=== PATIENT | male | born 1955 | race Two or more races ===

== ENCOUNTER 2016-08-11 23:05 | Emergency (ER) | payer OTHER ==
[~2016-08-11] VITALS: Ht 157.5 cm; Wt 110.2 kg
[~2016-08-11 23:05] MED LIST: ASPI-605 PO; Acetaminophen PO; ESOM40CA PO; GABA300C PO; TAMS-3 PO; VALA500T PO
--- NOTE | 2016-08-11 23:23 | NUR ---
Pt c/o extreme 10/10 pain in right elbow, started around 1600 today, denies trauma, distal PMS intact but movement of hand/fingers limited due to pain, cap refill < 2 sec. No other complaints, minor distress noted.
[2016-08-11] MEDS ORDERED: CLINDAMYCIN HCL 150 MG CAPSULE PO ONE (23:45)
[2016-08-11] MEDS ORDERED: HYDROCODONE/APAP 10-325 MG TABLET PO ONE (23:45)
[2016-08-11] MEDS ORDERED: ONDANSETRON ODT 4 MG TAB.RAPDIS SL ONE (23:45)
[2016-08-12] MEDS ORDERED: CLINDAMYCIN HCL 300 MG CAPSULE ONE
[2016-08-12] MEDS ORDERED: HYDROCODONE/APAP 10-325 MG TABLET ONE (00:01)
[2016-08-12] MEDS ORDERED: ONDANSETRON ODT 4 MG TAB.RAPDIS ONE (00:01)
--- NOTE | 2016-08-12 00:29 | NUR ---
Pt states his pain is now just 2-06/11.
--- NOTE | 2016-08-12 00:51 | NUR ---
Gave pt RX and d/c instructions, verbalized understanding. Pt's is driving.
== END 2016-08-12 00:55 | disposition home or self-care (01) ==
LOC: ER 23:05
DX: L03.113 Cellulitis of right upper limb (principal); E11.9 Type 2 diabetes mellitus without complications; Z79.82 Long term (current) use of aspirin
CPT/HCPCS: 73080; A4663; Q0162

== ENCOUNTER 2016-08-17 10:30 | Inpatient (IN) | payer OTHER ==
[~2016-08-17] VITALS: Ht 162.6 cm; Wt 95.3 kg
[2016-08-17] MEDS ORDERED: IV NORMAL SALINE 1000 ML BAG IV ONE (11:15)
[2016-08-17 11:25] LABS: BASOPHILS # (AUTO) 0.1 K/uL (0.0-8.0); EOSINOPHILS # (AUTO) 0.3 K/uL (0.0-0.7); LYMPHOCYTES % (AUTO) 17.7 % (20.5-51.5); RED BLOOD CELL COUNT(AUTO) 5.23 MIL/UL (4.7-6.1)
[2016-08-17 11:28] LABS: BASOPHILS % (AUTO) 0.7 % (0.0-2.0); EOSINOPHILS % (AUTO) 2.9 % (0.0-7.0); HEMATOCRIT 43.9 % (40-50); HEMOGLOBIN 15.6 G/DL (14.0-18.0); MEAN CORPUSCULAR HEMOGLOBIN 29.8 UUG (27.0-31.0); MEAN CORPUSCULAR HGB CONC 36 g/dL (32.0-37.0); MEAN CORPUSCULAR VOLUME 83.9 FL (82.0-92.0); MONOCYTES # (AUTO) 0.9 K/UL (0.1-1.30); MONOCYTES % (AUTO) 8.2 % (0.0-11.0); NEUTROPHILS # (AUTO) 8.1 K/UL (1.8-8.9); NEUTROPHILS % (AUTO) 70.5 % (38.5-71.5); PLATELET COUNT (AUTO) 219 K/UL (150-450); RED CELL DISTRIBUTION WIDTH 13.9 % (11.5-14.5); WHITE BLOOD COUNT (AUTO) 11.4 K/UL (4.0-11.2)
[2016-08-17 11:35] LABS: CALCIUM 9.1 mg/dL (8.5-10.1); CREATININE 0.8 mg/dL (0.6-1.3)
[2016-08-17 11:43] LABS: TROPONIN I < 0.017 ng/mL (0.00-0.056)
[2016-08-17 11:47] LABS: ALBUMIN 3.7 g/dL (3.4-5.0); BILIRUBIN,DIRECT 0.1 mg/dL (0.0-0.2); BILIRUBIN,TOTAL 0.5 mg/dL (0.2-1.0); TOTAL PROTEIN, SERUM 7.4 g/dL (6.4-8.2)
[2016-08-17 11:48] LABS: LACTIC ACID 1.4 mmol/L (0.4-2.0)
[2016-08-17 11:49] LABS: EOSINOPHILS % (MANUAL) 3 % (0-8); LYMPHOCYTES % (MANUAL) 17 % (20-40); MONOCYTES % (MANUAL) 14 % (2-10); NEUTROPHILS % (MANUAL) 66 % (42-75)
[2016-08-17 11:50] LABS: PLATELET ESTIMATE ADEQUATE
[2016-08-17] MEDS ORDERED: inhaler (12:31)
[2016-08-17] MEDS ORDERED: METF-495 PO (12:31)
[2016-08-17] MEDS ORDERED: IV NORMAL SALINE 250 ML IV ONE (12:33)
[2016-08-17] MEDS ORDERED: IOHEXOL 350 100 ML INFUS..BTL ONE (12:33)
[2016-08-17] MEDS ORDERED: TAMS-3 PO (12:36)
[2016-08-17] MEDS ORDERED: METOCLOPRAMIDE HCL 10 MG/2 ML VIAL IV ONE (14:15)
[2016-08-17] MEDS ORDERED: METOCLOPRAMIDE HCL 10 MG/2 ML VIAL ONE (14:26)
[2016-08-17] MEDS ORDERED: ZOLPIDEM 5 MG TABLET PO PRN (16:15)
[2016-08-17] MEDS ORDERED: Z GUARD REMEDY PASTE 57 GM TUBE TOP PRN (16:15)
[2016-08-17] MEDS ORDERED: HYDROCODONE/APAP 5-325MG TABLET PO PRN (16:15)
[2016-08-17] MEDS ORDERED: MAGNESIUM HYDROXIDE 30 ML LIQUID UDC PO PRN (16:15)
[2016-08-17] MEDS ORDERED: ONDANSETRON 4 MG/2 ML VIAL IV PRN (16:15)
[2016-08-17] MEDS ORDERED: ACETAMINOPHEN 325 MG TABLET PO PRN (16:15)
[2016-08-17 16:27] VITALS: BP 121/72
[2016-08-17] MEDS ORDERED: METFORMIN XR 500 MG TAB.SR.24H PO SCH (18:00)
[2016-08-17] MEDS: TAMSULOSIN HCL 0.4 MG CAP.SR.24H PO SCH ×2 (20:03→20:17)
[2016-08-17 20:24] VITALS: BP 127/69
[2016-08-18] VITALS: BP 124/70
[2016-08-18 04:40] VITALS: BP 108/74
[2016-08-18] MEDS: PANTOPRAZOLE SODIUM 40 MG TABLET.DR PO SCH ×2 (06:19→10:14)
[2016-08-18 06:29] LABS: BASOPHILS # (AUTO) 0.1 K/uL (0.0-8.0); BASOPHILS % (AUTO) 0.6 % (0.0-2.0); EOSINOPHILS # (AUTO) 0.4 K/uL (0.0-0.7); EOSINOPHILS % (AUTO) 4.8 % (0.0-7.0); HEMATOCRIT 41.4 % (40-50); HEMOGLOBIN 14.3 G/DL (14.0-18.0); LYMPHOCYTES # (AUTO) 1.8 K/UL (0.8-4.8); LYMPHOCYTES % (AUTO) 21.3 % (20.5-51.5); MEAN CORPUSCULAR HEMOGLOBIN 29.2 UUG (27.0-31.0); MEAN CORPUSCULAR HGB CONC 35 g/dL (32.0-37.0); MEAN CORPUSCULAR VOLUME 84.7 FL (82.0-92.0); MONOCYTES # (AUTO) 0.8 K/UL (0.1-1.30); MONOCYTES % (AUTO) 9.8 % (0.0-11.0); NEUTROPHILS # (AUTO) 5.4 K/UL (1.8-8.9); NEUTROPHILS % (AUTO) 63.5 % (38.5-71.5); PLATELET COUNT (AUTO) 209 K/UL (150-450); RED BLOOD CELL COUNT(AUTO) 4.89 MIL/UL (4.7-6.1); RED CELL DISTRIBUTION WIDTH 13.7 % (11.5-14.5); WHITE BLOOD COUNT (AUTO) 8.5 K/UL (4.0-11.2)
[2016-08-18 06:40] LABS: CALCIUM 8.6 mg/dL (8.5-10.1); CREATININE 0.7 mg/dL (0.6-1.3); MAGNESIUM 1.8 mg/dL (1.8-2.4); PHOSPHOROUS 3.8 mg/dL (2.5-4.9)
[2016-08-18 11:47] VITALS: BP 115/75
[2016-08-19] MEDS ORDERED: METFORMIN XR 500 MG TAB.SR.24H PO SCH (18:00)
== END 2016-08-18 12:40 | disposition home or self-care (01) | DRG 243 ==
LOC: ER 10:30 → TELE 14:50
PROVIDERS: ADMIT Family Medicine; ATTEND Family Medicine
DX: K20.8 Other esophagitis (principal); K76.0 Fatty (change of) liver, not elsewhere classified; E11.9 Type 2 diabetes mellitus without complications; E66.9 Obesity, unspecified; D72.829 Elevated white blood cell count, unspecified; G47.33 Obstructive sleep apnea (adult) (pediatric); K44.9 Diaphragmatic hernia without obstruction or gangrene; J45.909 Unspecified asthma, uncomplicated; N40.0 Benign prostatic hyperplasia without lower urinary tract symptoms; Z87.891 Personal history of nicotine dependence; R79.89 Other specified abnormal findings of blood chemistry; Z68.36 Body mass index [BMI] 36.0-36.9, adult; Z71.3 Dietary counseling and surveillance
CPT/HCPCS: 36415; 70030-TC; 71010; 71275; 83605; 83735; 84100; 85025; 85730; 87040; 93005; A4663; J2765; J7030; J7050; Q9967

== ENCOUNTER 2017-03-09 11:24 | Emergency (ER) | payer OTHER ==
[~2017-03-09] VITALS: Ht 167.6 cm; Wt 103.4 kg
[~2017-03-09 11:24] MED LIST changes: -ASPI-605 PO; -Acetaminophen PO; -GABA300C PO; +METF-495 PO; -VALA500T PO; +inhaler
[2017-03-09] MEDS ORDERED: ONDANSETRON ODT 4 MG TAB.RAPDIS SL ONE (12:00)
[2017-03-09] MEDS ORDERED: HYDROCODONE/APAP 7.5-325MG TABLET PO PRN (12:00)
[2017-03-09 12:30] LABS: *BILIRUBIN,URIN NEGATIVE (NEGATIVE); *BLOOD, URINE 3+ (NEGATIVE); *CLARITY,URINE CLOUDY (CLEAR); *COLOR,URINE RED (YELLOW); *KETONES,URINE NEGATIVE (NEGATIVE); *PROTEIN,URINE 1+ (NEGATIVE); LEUKOCYTE ESTERASE ,URINE NEGATIVE (NEGATIVE); NITRITE, URINE NEGATIVE (NEGATIVE)
[2017-03-09 12:50] LABS: UGLUCOSE 2+ (NEGATIVE)
[2017-03-09 12:53] LABS: BACTERIA,URINE NONE SEEN /HPF (NONE SEEN); RBC,URINE TNTC /HPF (0-3); SQUAMOUS EPITHELIAL CELL,UR NONE SEEN /HPF (NONE SEEN); WBC,URINE NONE SEEN /HPF (0-3)
--- NOTE | 2017-03-09 13:14 | NUR ---
Patient was seen by MD. Urine lab results were given to patient and explained to patient by MD. Patient to follow up with urologist. DC and follow up isntructions given and explained to patient who states he understands all instructions.
== END 2017-03-09 13:19 | disposition home or self-care (01) ==
LOC: ER 11:24
DX: R31.9 Hematuria, unspecified (principal); G47.30 Sleep apnea, unspecified; E11.9 Type 2 diabetes mellitus without complications; Z90.49 Acquired absence of other specified parts of digestive tract
CPT/HCPCS: A4663

== ENCOUNTER 2017-12-30 15:32 | Emergency (ER) | payer OTHER ==
[~2017-12-30] VITALS: Ht 167.6 cm; Wt 108.0 kg
[2017-12-30 16:09] LABS: BASOPHILS # (AUTO) 0.1 K/uL (0.0-8.0); BASOPHILS % (AUTO) 0.7 % (0.0-2.0); EOSINOPHILS # (AUTO) 0.2 K/uL (0.0-0.7); EOSINOPHILS % (AUTO) 2.2 % (0.0-7.0); HEMATOCRIT 45.7 % (36.7-47.1); HEMOGLOBIN 15.5 g/dL (12.5-16.3); LYMPHOCYTES # (AUTO) 1.5 K/uL (20.0-40.0); LYMPHOCYTES % (AUTO) 15.6 % (20.5-51.5); MEAN CORPUSCULAR HEMOGLOBIN 30.4 uug (23.8-33.4); MEAN CORPUSCULAR HGB CONC 34 g/dL (32.5-36.3); MEAN CORPUSCULAR VOLUME 89.4 fL (73.0-96.2); MONOCYTES # (AUTO) 0.8 K/uL (2.0-10.0); MONOCYTES % (AUTO) 8.5 % (0.0-11.0); NEUTROPHILS # (AUTO) 6.9 K/uL (1.8-8.9); PLATELET COUNT (AUTO) 215 K/uL (152-348); RED BLOOD CELL COUNT(AUTO) 5.11 MIL/uL (4.06-5.63); WHITE BLOOD COUNT (AUTO) 9.5 K/uL (3.6-10.2)
[2017-12-30 16:11] LABS: ABG BASE EXCESS -2.2 mmol/L; ABG HCO3 21.8 mmol/L; ABG PCO2 35.6 mmHg (35.0-45.0); ABG PH 7.405 (7.350-7.450); ABG PO2 78.5 mmHg (75.0-100.0); ABG SITE LEFT BRACHIAL; ABG TOTAL HEMOGLOBIN 15.3 G/dL (13.5-18.0); COHb 1.6 % (0.5-1.5); MetHb 0.1 % (0.0-1.5); O2Hb 94.1 % (94.0-97.0); VENT MODE ROOM AIR
[2017-12-30 16:14] LABS: CREATININE 0.9 mg/dL (0.6-1.3); POTASSIUM 4.1 mmol/L (3.5-5.1)
[2017-12-30 16:27] LABS: BILIRUBIN,DIRECT 0.1 mg/dL (0.0-0.2); BILIRUBIN,TOTAL 0.5 mg/dL (0.2-1.0); TOTAL PROTEIN, SERUM 7.3 g/dL (6.4-8.2)
[2017-12-30] MEDS ORDERED: IPRATROPIUM BROMIDE 0.5 MG/2.5 ML NEBU NEB ONE (16:30)
[2017-12-30] MEDS ORDERED: ALBUTEROL SULFATE 2.5 MG/3 ML NEBU ONE (16:30)
[2017-12-30] MEDS ORDERED: ALBUTEROL SULFATE 2.5 MG/3 ML NEBU NEB ONE (16:30)
[2017-12-30] MEDS ORDERED: IPRATROPIUM BROMIDE 0.5 MG/2.5 ML NEBU ONE (16:31)
[2017-12-30] MEDS ORDERED: IOHEXOL 350 100 ML INFUS..BTL ONE (17:22)
[2017-12-30] MEDS ORDERED: SWABABLE VALVE TRANSFER SET EA MC ONE (17:22)
[2017-12-30] MEDS ORDERED: IV NORMAL SALINE 250 ML IV ONE (17:22)
[2017-12-30] MEDS ORDERED: NORMAL SALINE FLUSH 10 ML DISP.SYRIN ONE (17:22)
--- NOTE | 2017-12-30 18:32 | NUR ---
Patient discharged to home in stable conditon. Written and verbal after care instructions given. Patient verbalizes understanding of instructions.pt walks in steady gait, breathing better, ra 98%, copies of all the studies provided for pt to follow up with pmd .
[2017-12-30 18:33] VITALS: BP 118/77
== END 2017-12-30 18:35 | disposition home or self-care (01) ==
LOC: ER 15:33
DX: R06.00 Dyspnea, unspecified (principal); R21 Rash and other nonspecific skin eruption; E11.9 Type 2 diabetes mellitus without complications; Z87.891 Personal history of nicotine dependence
CPT/HCPCS: 36415; 36600; 70030-TC; 71045; 71275; 85025; 93005; A4663; J3490; J3590; J7050; Q9967

== ENCOUNTER 2021-03-19 15:28 | Emergency (ER) | payer MEDICARE, OTHER ==
[~2021-03-19] VITALS: Ht 162.6 cm; Wt 104.3 kg
--- NOTE | 2021-03-19 16:10 | NUR ---
DR DRISCOLL AT BEDSIDE FOR MSE.
[2021-03-19 16:53] LABS: HEMATOCRIT 38.6 % (36.7-47.1); MEAN CORPUSCULAR HEMOGLOBIN 26.9 uug (23.8-33.4); PLATELET COUNT (AUTO) 236 K/uL (152-348)
[2021-03-19 17:05] LABS: BILIRUBIN,DIRECT 0.1 mg/dL (0.0-0.2); BILIRUBIN,TOTAL 0.6 mg/dL (0.2-1.0); CREATININE 0.7 mg/dL (0.6-1.3); POTASSIUM 3.6 mmol/L (3.5-5.1)
--- NOTE | 2021-03-19 17:35 | NUR ---
PATIENT HAS BEEN CLEARED FOR D/C. Written and verbal after care instructions given. Patient verbalizes understanding of instructions. Stressed follow up WITH PCP/SURGEON or return to ER for worsening s/s. Patient AMBULATED OUT OF ED to home in stable condition.
[2021-03-19 17:37] VITALS: BP 135/83
== END 2021-03-19 17:50 | disposition home or self-care (01) ==
LOC: ER 15:28
DX: K44.9 Diaphragmatic hernia without obstruction or gangrene (principal); R09.81 Nasal congestion; E11.9 Type 2 diabetes mellitus without complications; Z79.84 Long term (current) use of oral hypoglycemic drugs; E66.9 Obesity, unspecified; Z68.39 Body mass index [BMI] 39.0-39.9, adult; F17.201 Nicotine dependence, unspecified, in remission
CPT/HCPCS: 36415; 70030-TC; 71045; 85025; 85730; 93005; A4663

== ENCOUNTER 2022-04-11 18:43 | Emergency (ER) | payer MEDICARE, OTHER ==
[~2022-04-11] VITALS: Ht 165.1 cm; Wt 90.7 kg
--- NOTE | 2022-04-11 19:05 | NUR ---
Dr. Hartley at bedside for MSE.
[2022-04-11] MEDS ORDERED: OXYM15MI4 NS (19:19)
[2022-04-11] MEDS ORDERED: DOXY-326 PO (19:19)
[2022-04-11] MEDS ORDERED: GUAI5SYR4 PO (19:19)
[2022-04-11 19:28] VITALS: BP 123/77
--- NOTE | 2022-04-11 19:28 | NUR ---
Patient discharged to home in stable condition. Written and verbal after care instructions given. Patient verbalizes understanding of instructions. Stressed follow up or return to ER for worsening s/s. Patient out of ER with steady gait, no acute signs of distress, VSS, all belongings taken.
== END 2022-04-11 19:28 | disposition home or self-care (01) ==
LOC: ER 18:53
DX: J20.9 Acute bronchitis, unspecified (principal); R09.81 Nasal congestion; E11.9 Type 2 diabetes mellitus without complications; Z79.84 Long term (current) use of oral hypoglycemic drugs; Z87.891 Personal history of nicotine dependence; E66.9 Obesity, unspecified; Z68.33 Body mass index [BMI] 33.0-33.9, adult; G47.30 Sleep apnea, unspecified
CPT/HCPCS: A4663

== ENCOUNTER 2022-06-13 00:57 | Emergency (ER) | payer MEDICARE, OTHER ==
[~2022-06-13] VITALS: Ht 165.1 cm; Wt 90.7 kg
[~2022-06-13 00:57] MED LIST changes: +DOXY-326 PO; +GUAI5SYR4 PO; +OXYM15MI4 NS
[2022-06-13] MEDS ORDERED: ALBUTEROL SULFATE 2.5 MG/3 ML NEBU NEB ONE (01:15)
[2022-06-13] MEDS ORDERED: IPRATROPIUM BROMIDE 0.5 MG/2.5 ML NEBU NEB ONE (01:15)
--- NOTE | 2022-06-13 01:19 | NUR ---
Patient ambulated to room #5, assisted into gown, informed of plan of care. Bedside EKG done for MD review, # 18g established in right ac, blood collected and sent to lab. MD at bedside for exam. Patient positioned for comfort HOB elevated to facilitate breathing, will continue to monitor.
[2022-06-13] MEDS ORDERED: IPRATROPIUM BROMIDE 0.5 MG/2.5 ML NEBU ONE (01:26)
[2022-06-13] MEDS ORDERED: ALBUTEROL SULFATE 2.5 MG/3 ML NEBU ONE (01:26)
[2022-06-13 01:38] LABS: CARBON DIOXIDE 25 mmol/L (21-32); CHLORIDE 105 mmol/L (98-107); CREATININE 0.7 mg/dL (0.6-1.3); GLUCOSE 133 mg/dL (74-106); POTASSIUM 3.9 mmol/L (3.5-5.1); UREA NITROGEN, BLOOD 9 mg/dL (7-18)
--- NOTE | 2022-06-13 01:41 | NUR ---
Breathing tx in progress.
[2022-06-13 01:55] LABS: MEAN CORPUSCULAR HEMOGLOBIN 29.7 uug (23.8-33.4); MEAN CORPUSCULAR VOLUME 88.8 fL (73.0-96.2); PLATELET COUNT (AUTO) 270 K/uL (152-348)
--- NOTE | 2022-06-13 03:11 | NUR ---
Sitting up at bedside, states feels better, awaiting MD re-eval.
--- NOTE | 2022-06-13 03:27 | NUR ---
Up to bathroom and back to bed.
[2022-06-13] MEDS ORDERED: DOXY100C5 PO (04:10)
[2022-06-13] MEDS ORDERED: ALBU8.5H8 INH (04:10)
--- NOTE | 2022-06-13 04:22 | NUR ---
ACI given, HL removed, remains stable for discharge home.
[2022-06-13 04:23] VITALS: BP 100/60
== END 2022-06-13 04:24 | disposition home or self-care (01) ==
LOC: ER 00:58
DX: J20.9 Acute bronchitis, unspecified (principal); Z87.891 Personal history of nicotine dependence; I25.2 Old myocardial infarction; G47.30 Sleep apnea, unspecified; E11.9 Type 2 diabetes mellitus without complications; E66.9 Obesity, unspecified; Z68.33 Body mass index [BMI] 33.0-33.9, adult; Z79.84 Long term (current) use of oral hypoglycemic drugs; K44.9 Diaphragmatic hernia without obstruction or gangrene
CPT/HCPCS: 36415; 71045; 84484; 85025; 93005; A4663; J3590